=== PATIENT | male | born 1990 | race Caucasian/White ===

== ENCOUNTER 2021-05-08 04:10 | Inpatient (IN) | payer MEDICAID ==
[~2021-05-08] VITALS: Ht 160 cm; Wt 78.5 kg
[2021-05-08] MEDS ORDERED: ONDANSETRON 2MG/ML, 2ML IVPush ONE ×3 (05:00→10:00)
[2021-05-08] MEDS ORDERED: SODIUM CHLORIDE 0.9% 1,000ML IVBOLUS ONE ×2 (05:00→10:00)
[2021-05-08] MEDS ORDERED: KETOROLAC 30 MG/1 ML IVPush ONE (05:00)
[2021-05-08] MEDS ORDERED: SODIUM CHLORIDE FLUSH 10ML SYR IVF ONE ×2 (05:00→10:30)
[2021-05-08] MEDS ORDERED: ONDANSETRON 2MG/ML, 2ML ONE ×2 (05:07→09:19)
[2021-05-08] MEDS ORDERED: KETOROLAC 30 MG/1 ML ONE (05:07)
[2021-05-08] MEDS ORDERED: MORPHINE SULFATE 4 MG/ML, 1ML ONE ×2 (05:08→09:22)
[2021-05-08] MEDS: MORPHINE SULFATE 4 MG/ML, 1ML IVPush PRN ×2 (05:28→09:31)
[2021-05-08 05:59] LABS: BASOPHILS % (AUTO) 0 % (0-1); EOSINOPHILS % (AUTO) 0 % (1-7); LYMPHOCYTES % (AUTO) 12 % (22-44); MEAN CORPUSCULAR HEMOGLOBIN 31.6 pg (27.5-34.5); MEAN CORPUSCULAR HGB CONC 35.5 g/dL (33.2-36.2); MEAN PLATELET VOLUME 7.6 fL (7.4-10.4); MONOCYTES % (AUTO) 8 % (2-9); NEUTROPHILS % (AUTO) 81 % (42-75); PLATELET COUNT 276 x10^3/uL (130-400); RED BLOOD COUNT 5.93 x10^6/uL (4.38-5.82); RED CELL DISTRIBUTION WIDTH 12.6 % (9.4-14.8)
[2021-05-08 06:05] LABS: ALBUMIN 4.1 g/dL (3.4-5.0); ANION GAP 11 mmol/L (5-15); CALCIUM 9.9 mg/dL (8.5-10.1); CHLORIDE 102 mmol/L (98-107)
[2021-05-08 06:09] LABS: ALANINE AMINOTRANSFERASE 116 U/L (12-78); ALKALINE PHOSPHATASE 59 U/L (45-117); BILIRUBIN,TOTAL 1.1 mg/dL (0.2-1.0); CREATININE 1.17 mg/dL (0.7-1.3); TOTAL PROTEIN 8.3 g/dL (6.4-8.2)
--- NOTE | 2021-05-08 07:16 | NUR ---
report given to jaren ewing. awaiting us results
[2021-05-08] MEDS ORDERED: OMNIPAQUE 350 MG/ML, 100ML BOTTLE ONE (09:03)
[2021-05-08] MEDS ORDERED: PROCHLORPERAZINE 5 MG/ML, 2ML IVPush ONE (10:00)
[2021-05-08] MEDS ORDERED: PROCHLORPERAZINE 5 MG/ML, 2ML ONE (10:17)
--- NOTE | 2021-05-08 10:37 | NUR ---
REPORT TO RU CHRISTINA.
--- NOTE | 2021-05-08 10:40 | NUR ---
Report from Yolande rn With reassessment nausea improved to 2/10, pain to 0/10. However with po challenge patient started hiccuping and vomited almost immediately. ERP made aware
[2021-05-08] MEDS ORDERED: chlorPROMAZINE 25 MG/ML, 1ML IM ONE (11:30)
[2021-05-08 13:09] VITALS: BP 155/78
[2021-05-08] MEDS: D5%-0.9% NACL 1,000 ML IV SCH ×2 (13:30→21:32)
[2021-05-08] MEDS ORDERED: ONDANSETRON ODT 4 MG PO PRN (13:30)
[2021-05-08] MEDS ORDERED: PANTOPRAZOLE 40 MG IV IVPush SCH (13:30)
[2021-05-08] MEDS ORDERED: PROMETHAZINE 25 MG/ML, 1ML IM PRN (13:30)
[2021-05-08] MEDS ORDERED: DOCUSATE 100 MG CAPSULE PO PRN (13:30)
[2021-05-08] MEDS ORDERED: hydrALAzine 20 MG/ML, 1ML IVPush PRN (13:30)
[2021-05-08 13:59] VITALS: BP 154/82
[2021-05-08] MEDS: PANTOPRAZOLE 40 MG IV IVPush SCH (14:26)
[2021-05-08] MEDS: ONDANSETRON 2MG/ML, 2ML IVPush PRN (17:55)
[2021-05-08] MEDS: OXYcodone IR 5MG TABLET PO PRN ×2 (18:11→22:48)
[2021-05-08 19:39] VITALS: BP 141/65
[2021-05-08] MEDS: SODIUM CHLORIDE NASAL SPRAY 45ML BOTTLE NAS PRN (22:40)
[2021-05-09 01:05] VITALS: BP 132/78
[2021-05-09] MEDS: ONDANSETRON 2MG/ML, 2ML IVPush PRN ×3 (01:13→22:59)
[2021-05-09] MEDS: PANTOPRAZOLE 40 MG IV IVPush SCH ×2 (02:46→15:31)
[2021-05-09] MEDS: OXYcodone IR 5MG TABLET PO PRN ×4 (02:58→22:50)
[2021-05-09] MEDS: D5%-0.9% NACL 1,000 ML IV SCH (03:45)
[2021-05-09] MEDS: SODIUM CHLORIDE NASAL SPRAY 45ML BOTTLE NAS PRN (05:00)
[2021-05-09 05:17] LABS: BASOPHILS % (AUTO) 0 % (0-1); EOSINOPHILS % (AUTO) 0 % (1-7); LYMPHOCYTES % (AUTO) 25 % (22-44); MEAN CORPUSCULAR HEMOGLOBIN 31.5 pg (27.5-34.5); MEAN PLATELET VOLUME 7.2 fL (7.4-10.4); MONOCYTES % (AUTO) 8 % (2-9); NEUTROPHILS % (AUTO) 66 % (42-75); PLATELET COUNT 197 x10^3/uL (130-400); RED CELL DISTRIBUTION WIDTH 12.8 % (9.4-14.8)
[2021-05-09 05:25] LABS: CHLORIDE 107 mmol/L (98-107)
[2021-05-09 05:37] LABS: ALANINE AMINOTRANSFERASE 72 U/L (12-78); ALBUMIN 3.1 g/dL (3.4-5.0); ALKALINE PHOSPHATASE 47 U/L (45-117); ANION GAP 7 mmol/L (5-15); BILIRUBIN,TOTAL 0.9 mg/dL (0.2-1.0); CALCIUM 7.9 mg/dL (8.5-10.1); CHOL/HDL RATIO 5.1; CHOLESTEROL, TOTAL 184 mg/dL (140-239); CREATININE 0.88 mg/dL (0.7-1.3); HDL CHOL % 20 % (26-37); HDL CHOLESTEROL (DIRECT) 36 mg/dL (40-60); LDL CHOLESTEROL,CALCULATED 120 mg/dL (54-169); LDL/HDL RATIO 3.3 (0.5-3.0); TOTAL PROTEIN 6.3 g/dL (6.4-8.2); TRIGLYCERIDES 139 mg/dL (50-200); VLDL CHOLESTEROL 28 mg/dL (0-25)
[2021-05-09 06:39] VITALS: BP 143/65
[2021-05-09] MEDS ORDERED: MIDAZOLAM 1 MG/ML, 2ML ONE (12:00)
[2021-05-09] MEDS ORDERED: CHLORHEXIDINE 15 ML UDC ONE (12:15)
[2021-05-09] MEDS ORDERED: FENTANYL PF 100 MCG/2ML IV PRN (12:30)
[2021-05-09] MEDS ORDERED: PROPOFOL 10 MG/ML, 20ML ONE (12:58)
[2021-05-09] MEDS ORDERED: FENTANYL PF 100 MCG/2ML ONE (13:20)
[2021-05-09 14:59] VITALS: BP 166/84
[2021-05-09] MEDS ORDERED: LORazepam 2 MG/ML, 1ML IVPush ONE (18:30)
[2021-05-09] MEDS: SUCRALFATE 1 GM TABLET PO SCH ×2 (18:32→22:50)
[2021-05-09 19:01] VITALS: BP 163/77
[2021-05-09] MEDS ORDERED: KETOROLAC 30 MG/1 ML IVPush SCH (23:30)
[2021-05-09] MEDS: KETOROLAC 30 MG/1 ML IVPush PRN (23:46)
[2021-05-10] MEDS ORDERED: MELATONIN 5 MG TABLET PO PRN (02:30)
[2021-05-10 02:40] VITALS: BP 167/106
[2021-05-10] MEDS: PANTOPRAZOLE 40 MG IV IVPush SCH ×2 (03:01→14:30)
[2021-05-10 05:10] LABS: BASOPHILS % (AUTO) 0 % (0-1); EOSINOPHILS % (AUTO) 1 % (1-7); LYMPHOCYTES % (AUTO) 24 % (22-44); MEAN CORPUSCULAR HEMOGLOBIN 32.1 pg (27.5-34.5); MEAN CORPUSCULAR HGB CONC 36.1 g/dL (33.2-36.2); MEAN PLATELET VOLUME 7.1 fL (7.4-10.4); MONOCYTES % (AUTO) 9 % (2-9); NEUTROPHILS % (AUTO) 67 % (42-75); PLATELET COUNT 195 x10^3/uL (130-400); RED BLOOD COUNT 5.06 x10^6/uL (4.38-5.82); RED CELL DISTRIBUTION WIDTH 12.5 % (9.4-14.8)
[2021-05-10 05:22] LABS: CHLORIDE 102 mmol/L (98-107)
[2021-05-10 05:38] LABS: ANION GAP 7 mmol/L (5-15); CALCIUM 8.3 mg/dL (8.5-10.1); CREATININE 0.74 mg/dL (0.7-1.3)
[2021-05-10 07:18] VITALS: BP 159/91
[2021-05-10] MEDS: SUCRALFATE 1 GM/10 ML UDC PO SCH ×2 (07:20→10:35)
[2021-05-10] MEDS: ONDANSETRON 2MG/ML, 2ML IVPush PRN (07:20)
[2021-05-10] MEDS: KETOROLAC 30 MG/1 ML IVPush PRN (07:20)
[2021-05-10] MEDS ORDERED: POTASSIUM CHLORIDE 20 MEQ TAB.ER.PRT PO ONE (07:30)
[2021-05-10] MEDS ORDERED: MULTIVITAMIN 1 TABLET PO SCH (09:00)
[2021-05-10] MEDS ORDERED: LOSARTAN 25MG TABLET PO SCH (09:00)
[2021-05-10] MEDS: OXYcodone IR 5MG TABLET PO PRN ×2 (10:31→14:55)
[2021-05-10] MEDS ORDERED: SUCR1ORA5 PO (12:30)
[2021-05-10] MEDS ORDERED: OXYC5TAB98 PO (12:30)
[2021-05-10] MEDS ORDERED: MULT-482 PO (12:30)
[2021-05-10] MEDS ORDERED: LOSA25TA25 PO (12:30)
[2021-05-10] MEDS ORDERED: PANT40TA3 PO (12:30)
[2021-05-10 13:28] VITALS: BP 158/94
[2021-05-10] MEDS ORDERED: ONDA4TAB7 PO (15:20)
== END 2021-05-10 15:40 | disposition home or self-care (01) | DRG 368 ==
LOC: ED 08:39 → EDIP 11:33 → 3N 12:28
PROVIDERS: ADMIT Family Medicine; ATTEND Family Medicine
PROC: 0DJ08ZZ Inspection of Upper Intestinal Tract, Via Natural or Artificial Opening Endoscopic (ICD-10-PCS; principal; 2021-05-09 14:30)
DX: K21.01 Gastro-esophageal reflux disease with esophagitis, with bleeding (principal); K29.01 Acute gastritis with bleeding; E86.0 Dehydration; F10.10 Alcohol abuse, uncomplicated; F12.10 Cannabis abuse, uncomplicated; K44.9 Diaphragmatic hernia without obstruction or gangrene; K76.0 Fatty (change of) liver, not elsewhere classified; Z20.822 Contact with and (suspected) exposure to COVID-19
CPT/HCPCS: 36415; 96374; 96375; 99285; J7042; 74177; 76700; 80048; 80053; 80061; 80320; 83036; 83690; 83735; 84100; 84443; 85025; 87635; G0378; J1885; J2250; J2405; J2550; J2704; J3010; J3230; Q9967; C9113; G0480; J0780; J2060; J2270; J7030